=== PATIENT | male | born 1925 | race Caucasian/White ===

== ENCOUNTER 2016-10-24 08:27 | Emergency (ER) | payer MEDICARE, OTHER ==
[2016-10-24] MEDS ORDERED: SYNTHROID25 MCG PO (12:04)
[2016-10-24] MEDS ORDERED: PRILOSEC20 MG PO (12:04)
[2016-12-22] MEDS ORDERED: MIRALAX17 GM PO (20:49)
[2016-12-22] MEDS ORDERED: ASPIRIN81 MG PO (20:49)
[2016-12-22] MEDS ORDERED: PROSCAR5 MG PO (20:49)
[2016-12-22] MEDS ORDERED: NYSTATIN1 EAC1 TOP (20:50)
[2016-12-22] MEDS ORDERED: SENNA-S TABLET1 EACH PO (20:51)
[2016-12-22] MEDS ORDERED: TYLENOL325 MG PO ×2 (20:52→20:53)
[2017-01-17] MEDS ORDERED: LIPITOR40 MG PO (09:40)
[2017-01-17] MEDS ORDERED: DULCOLAX10 MG RECTAL (09:40)
[2017-01-17] MEDS ORDERED: PRINIVIL2.5 MG PO (09:54)
[2017-01-17] MEDS ORDERED: ALDACTONE25 MG PO (09:55)
[2017-01-17] MEDS ORDERED: TOPROL XL25 MG PO (10:26)
[2017-01-17] MEDS ORDERED: REMERON15 MG PO (10:27)
[2017-02-10] MEDS ORDERED: CENTRUM SILVER1 EAC4 PO (10:06)
[2017-02-10] MEDS ORDERED: MILK OF MAGNESI30 ML PO (10:07)
[2017-02-10] MEDS ORDERED: IMODIUM2 MG PO (10:08)
[2017-02-10] MEDS ORDERED: TYLENOL650 MG RECTAL (10:09)
[2017-02-10] MEDS ORDERED: ATROVENT0.5 MG/2.5 INH (10:10)
[2017-02-10] MEDS ORDERED: FLEET ENEMA133 M1 RECTAL (10:11)
== END 2016-10-24 11:20 | disposition short-term general hospital (02) ==
LOC: ER 08:27
DX: S72.142A Displaced intertrochanteric fracture of left femur, initial encounter for closed fracture (principal); W19.XXXA Unspecified fall, initial encounter; E03.9 Hypothyroidism, unspecified; K21.9 Gastro-esophageal reflux disease without esophagitis; D64.9 Anemia, unspecified; Z90.49 Acquired absence of other specified parts of digestive tract; Z79.899 Other long term (current) drug therapy; Z87.891 Personal history of nicotine dependence
CPT/HCPCS: 73502-LT; J2270; J2405

== ENCOUNTER → 2016-12-04 | Outpatient (CLI) | payer MEDICARE, OTHER ==
[~2016-12-04] MED LIST: ALDACTONE25 MG PO; ASPIRIN81 MG PO; ATROVENT0.5 MG/2.5 INH; CENTRUM SILVER1 EAC4 PO; DULCOLAX10 MG RECTAL; FLEET ENEMA133 M1 RECTAL; IMODIUM2 MG PO; LIPITOR40 MG PO; MILK OF MAGNESI30 ML PO; MIRALAX17 GM PO; NYSTATIN1 EAC1 TOP; PRILOSEC20 MG PO; PRINIVIL2.5 MG PO; PROSCAR5 MG PO; REMERON15 MG PO; SENNA-S TABLET1 EACH PO; SYNTHROID25 MCG PO; TOPROL XL25 MG PO; TYLENOL325 MG PO; TYLENOL650 MG RECTAL
== END | disposition short-term general hospital (02) ==
LOC: CLORTH 09:01
DX: S72.142D Displaced intertrochanteric fracture of left femur, subsequent encounter for closed fracture with routine healing (principal)
CPT/HCPCS: 73502-LT